=== PATIENT | male | born 1940 | race African-American/Black ===

== ENCOUNTER 2017-07-27 08:37 | Day surgery (SDC) | payer OTHER, MEDICAID ==
[~2017-07-27] VITALS: Ht 179.1 cm; Wt 95.3 kg
[~2017-07-27 08:37] MED LIST: AMLO5TAB2 PO; ATOR40TA16 PO; CILO50TA PO; MULT1TAB64 PO
[2017-07-27] MEDS ORDERED: POVIDONE IODINE 5% (ANTISEPSIS KIT) 4 APPLICATIONS EACH NARE PRN (09:15)
[2017-07-27] MEDS ORDERED: ceFAZolin 1,000 MG/NS 100 ML IV SCH ×2 (09:15)
[2017-07-27] MEDS ORDERED: LACTATED RINGER'S 1000 ML IV PRN (09:15)
[2017-07-27] MEDS ORDERED: CHLORHEXIDINE GLUCONATE 2 % 1 PACK (2 CLOTHS) TOPICAL PRN (09:15)
[2017-07-27] MEDS ORDERED: INSULIN HUMAN REGULAR 1,000 UNITS/10 ML VIAL SQ PRN (09:15)
[2017-07-27] MEDS ORDERED: SODIUM CHLORID 0.9% 500 ML IV PRN (09:15)
[2017-07-27] MEDS ORDERED: METOPROLOL TARTRATE 25 MG TAB PO PRN (09:15)
--- NOTE | 2017-07-27 10:09 | EKG ---
Date Performed: 07/27/2017 Time Performed: 09:24:16 PTAGE: 76 years EKG: Sinus rhythm MARKED LEFT AXIS DEVIATION Nonspecific T wave changes ABNORMAL ECG NO PREVIOUS TRACING DOCTOR: Alex Barone Interpretating Date/Time 07/27/2017 10:07:34
[2017-07-27 10:25] LABS: AUTOMATED NEUTROPHIL # 1.5 TH/MM3 (1.8-7.7); BASOPHIL % 0.4 % (0.0-2.0); EOSINOPHIL % 0.9 % (0.0-4.0); HEMATOCRIT 39.1 % (39.0-51.0); HEMOGLOBIN 13.1 GM/DL (13.0-17.0); LYMPH % 46.3 % (9.0-44.0); LYMPHOCYTE # 1.8 TH/MM3 (1.0-4.8); MEAN CELL VOLUME 97.6 FL (80.0-100.0); MEAN CORPUSCULAR HEMOGLOBIN 32.8 PG (27.0-34.0); MEAN CORPUSCULAR HGB CONC 33.6 % (32.0-36.0); MEAN PLATELET VOLUME 8.6 FL (7.0-11.0); MONO % 14.6 % (0.0-8.0); MONOCYTE # 0.6 TH/MM3 (0-0.9); NEUT % 37.8 % (16.0-70.0); PLATELET COUNT 276 TH/MM3 (150-450); WHITE BLOOD COUNT 3.9 TH/MM3 (4.0-11.0)
[2017-07-27 10:33] LABS: PROTHROMBIN TIME - PATIENT 10.1 SEC (9.8-11.6)
[2017-07-27 10:34] LABS: BICARBONATE 26.2 MEQ/L (21.0-32.0); CALCIUM 8.8 MG/DL (8.5-10.1); CREATININE 1.1 MG/DL (0.60-1.30)
[2017-07-27] MEDS ORDERED: PHENYLEPH/NS 1000 MCG/10 ML SYR IV ONE (12:00)
[2017-07-27] MEDS ORDERED: PROPOFOL 200 MG/20 ML AMP IV ONE (12:00)
[2017-07-27] MEDS ORDERED: HEPARIN SODIUM - IV 10,000 UNITS/10 ML VIAL ONE (12:48)
[2017-07-27] MEDS ORDERED: HEPARIN SODIUM - SQ 10,000 UNITS/ML VIAL ONE (12:48)
[2017-07-27] MEDS ORDERED: PROTAMINE SULFATE 50 MG/5 ML VIAL ONE (12:48)
[2017-07-27] MEDS ORDERED: ACETAMINOPHEN 1000 MG/100 ML 0 ML IV ONE (12:54)
[2017-07-27] MEDS ORDERED: fentaNYL CITRATE 250 MCG/5 ML AMP ONE (12:55)
[2017-07-27] MEDS ORDERED: BUPIVACAINE/EPINEPHRINE 0.25% PF 30 ML VIAL NERV BLOCK ONE (14:15)
[2017-07-27] MEDS ORDERED: DO NOT ADM ANY ANTICOAGULANT DRUGS PRN (15:05)
[2017-07-27] MEDS ORDERED: IOHEXOL 300 MG/ML 100 ML BTL (for Rad CT) IVCONTRAST ONE (15:10)
[2017-07-27] MEDS ORDERED: MIDAZOLAM HCL 2 MG/2 ML VIAL ONE (15:15)
[2017-07-27] MEDS ORDERED: MAGNESIUM SULFATE 1 GM/100 ML IV PRN (16:00)
[2017-07-27] MEDS ORDERED: POTASSIUM CHLOR 20 MEQ/100 ML x 1 BAG IV PRN (16:00)
[2017-07-27] MEDS ORDERED: POTASSIUM PHOSPHATE 21 MMOL/NS 250 ML IV PRN ×2 (16:00)
[2017-07-27] MEDS ORDERED: ONDANSETRON HCL 4 MG/2 ML VIAL IV PUSH PRN (16:00)
[2017-07-27] MEDS ORDERED: ACETAMINOPHEN/HYDROcodone 325 MG/5 MG TAB PO PRN (16:00)
[2017-07-27] MEDS ORDERED: ACETAMINOPHEN 325 MG TAB PO PRN (16:00)
[2017-07-27] MEDS ORDERED: LACTATED RINGER'S 500 ML INJ IV SCH (16:00)
[2017-07-27] MEDS ORDERED: POTASSIUM CHLOR 20 MEQ 100 ML x 2 BAGS IV PRN (16:00)
[2017-07-27 18:55] VITALS: BP 150/66; PULSE 55; RESP 18; TEMP 97.6; O2SAT 100
--- NOTE | 2017-07-27 19:17 | MP ---
cc: Bladimir See MD, Mercedes MD DATE OF OPERATION: 07/27/2017 PREOPERATIVE DIAGNOSIS: Severe bilateral lower extremity ischemia. POSTOPERATIVE DIAGNOSIS: Severe bilateral lower extremity ischemia. PROCEDURE PERFORMED: Aortofemoral arteriogram. SURGEON: Bladimir See MD SURGEON: CHARLES Dickerson ANESTHESIA: LMA/local. DESCRIPTION OF PROCEDURE: With the patient in the supine position and under general anesthesia, the lower abdomen, both groins and thighs were prepped with Betadine and draped in a sterile fashion. Following a protocol timeout, the skin and subcutaneous tissue surrounding the proposed right common femoral access site was preemptively infiltrated with 0.25% Marcaine with epinephrine. Utilizing ultrasound guidance, an 18 gauge needle was inserted into the right mid common femoral lumen and a J wire advanced retrograde into the iliac artery. A 5-Swazi hemostatic sheath was deployed over the J wire. An Advantage guidewire, Omni catheter combination was navigated into the subrenal aorta. Diluted contrast was injected in conjunction with digital C-arm fluoroscopic imaging. This revealed a widely patent distal aorta, right common and external iliac arteries. The right internal iliac appeared quite robust. The left internal iliac was somewhat diminutive in overall caliber. The Omni catheter was navigated into the origin of the left common iliac. The Advantage guidewire then negotiated into the left common femoral lumen. The Omni catheter was exchanged for a Quick-Cross catheter, which was positioned within the mid common femoral lumen. Diluted contrast was again injected and confirmed a widely patent common profunda and superficial femoral arteries. The superficial femoral was widely patent and relatively nondiseased to the adductor level, at which point flush occlusion was documented. The above-knee popliteal was occluded throughout. A short segment of the popliteal below the knee reconstituted by perigeniculate collaterals. The more distal popliteal was occluded. The posterior tibial was occluded throughout. The anterior tibial and peroneal arteries reconstituted within the upper calf level. The dorsalis pedis was widely patent, but very minimal collateral was evident within the tarsal, metatarsal distribution. Diluted contrast was then injected via the right femoral 5-Swazi sheath and detailed selective angiography of the right lower extremity completed. This demonstrated a widely patent right common, superficial and profunda femoral artery. Similar to the left side, the right SFA occluded just proximal to the adductor level. On the right side, the popliteal did not reconstitute. The tibial arteries also did not visualize within the upper or mid calf level. Extensive collaterals did reconstitute the dorsalis pedis, but again, the tarsal and metatarsal collaterals appeared quite obliterated. 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 The 5-Swazi hemostatic sheath was removed and hemostasis achieved with compression. There were no procedure-related complications. The patient returned to postanesthesia unit in stable condition, having tolerated the procedure well. MD JEN Tello/JOSH , 06:45 PM , 07:16 PM
== END 2017-07-27 18:55 | disposition home or self-care (01) ==
LOC: HSDC 08:37
PROVIDERS: ATTEND Surgery Vascular Surgery
DX: I73.9 Peripheral vascular disease, unspecified (principal); I10 Essential (primary) hypertension; Z79.02 Long term (current) use of antithrombotics/antiplatelets
CPT/HCPCS: 01916; 36247; 75630; 76937; 80048; 85025; 85610; 85730; 86850; 86900; 86901; 93005; C1769; J0690; J1644; J2250; J2370; J2720; J3010; J7120; Q9967; J0131